=== PATIENT | male | born 1940 | race Caucasian/White ===

== ENCOUNTER → 2016-10-01 | Outpatient (CLI) | payer OTHER | END | disposition home or self-care (01) | LOC: CDC 08:55 | DX: Z01.810 Encounter for preprocedural cardiovascular examination (principal); R94.31 Abnormal electrocardiogram [ECG] [EKG] | CPT/HCPCS: 93000 ==

== ENCOUNTER → 2016-10-30 | Outpatient (CLI) | payer OTHER | END | disposition home or self-care (01) | DX: R26.2 Difficulty in walking, not elsewhere classified (principal); M25.562 Pain in left knee; M25.662 Stiffness of left knee, not elsewhere classified; M62.81 Muscle weakness (generalized) | CPT/HCPCS: 97110 GP; 97150 GO; 97161 GP; 97165 GO; G8978 GP; G8979 GP; G8980 GP; G8987 GO; G8988 GO; G8989 GO ==

== ENCOUNTER 2017-05-12 21:32 | Inpatient (IN) | payer OTHER ==
[~2017-05-12] VITALS: Ht 190.5 cm; Wt 105.6 kg
[~2017-05-12 21:32] MED LIST: FEOSOL325 MG PO; FISH OIL 1,0001 EAC7 PO; MULTIPLE VITAM1 EAC1 PO; RED YEAST RICE600 MG PO; TYLENOL EXTRA500 MG PO
[2017-05-13 09:02] VITALS: BP 131/71
[2017-05-13 14:19] LABS: MCV 94.3 FL (86-99); MEAN PLAT.VOLUME 10.5 uM^3 (9.0-12.4); PLATELET COUNT 125 K/uL (156-360); RBC DIS.WIDTH-CV 12.5 % (11.8-14.6); RBC DIS.WIDTH-SD 43.6 % (39-53); RED BLOOD COUNT 4.03 M/uL (4.00-5.50); WHITE BLOOD COUNT 4.3 K/uL (4.1-10.2)
[2017-05-13 16:20] VITALS: BP 117/62
[2017-05-13 20:22] VITALS: BP 129/73
[2017-05-13 23:49] VITALS: BP 119/70
[2017-05-14 04:03] VITALS: BP 134/77
[2017-05-14 06:03] LABS: HEMATOCRIT 38.6 % (38.0-50.0); MCV 91.7 FL (86-99)
[2017-05-14 06:28] LABS: ANION GAP 7 MEQ/L (2-14); CHLORIDE 105 MEQ/L (99-109); GFR ESTIMATE (CALCULATED) > 59 mL/min/; GLUCOSE 124 mg/dL (70-99); POTASSIUM 4.2 MEQ/L (3.7-5.4); SAMPLE HEMOLYSIS CHECK 0; SAMPLE ICTERIC CHECK 0; SAMPLE LIPEMIA CHECK 0; SODIUM 138 MEQ/L (136-147); UREA NITROGEN (BUN) 13 mg/dL (9-23)
[2017-05-14 08:06] VITALS: BP 148/75
[2017-05-14 12:00] VITALS: BP 120/74
[2017-05-14 15:43] VITALS: BP 148/77
[2017-05-14 20:09] VITALS: BP 130/70
[2017-05-15] VITALS: BP 131/73
[2017-05-15 04:00] VITALS: BP 133/74
[2017-05-15 06:43] LABS: HEMATOCRIT 37.8 % (38.0-50.0); MCV 92.6 FL (86-99)
[2017-05-15 08:00] VITALS: BP 123/65
[2017-05-15] MEDS ORDERED: LOVENOX40 MG/0.4 SC (09:30)
[2017-05-15] MEDS ORDERED: SENNA PLUS TAB1 EACH PO (09:30)
[2017-05-15] MEDS ORDERED: OXYCONTIN10 MG PO (09:30)
[2017-05-15] MEDS ORDERED: ENDOCET 5-3251 EACH PO (09:30)
[2017-05-15 12:12] VITALS: BP 132/71
== END 2017-05-15 14:23 | DRG 470 ==
LOC: ENRESERV 21:32 → 2SOUTH 05-13 08:34 → 3WEST 05-13 16:10
PROVIDERS: Orthopaedic Surgery
PROC: 0SRD0J9 Replacement of Left Knee Joint with Synthetic Substitute, Cemented, Open Approach (ICD-10-PCS; principal; 2017-05-13)
DX: M17.12 Unilateral primary osteoarthritis, left knee (principal); Z87.891 Personal history of nicotine dependence; G47.33 Obstructive sleep apnea (adult) (pediatric)
CPT/HCPCS: 73560; 80048; 85014; 85018; 85027; C1713; J0690; J1170; J1650; J2175; J2250; J2405; J3010; J7030; J7050

== ENCOUNTER 2017-05-23 02:41 | Inpatient (IN) | payer OTHER ==
[~2017-05-23] VITALS: Ht 188 cm; Wt 110.1 kg
[2017-05-23] VITALS (16 sets, daily range): BP systolic 94–161; BP diastolic 58–109
[~2017-05-23 02:41] MED LIST changes: +ENDOCET 5-3251 EACH PO; +LOVENOX40 MG/0.4 SC; +OXYCONTIN10 MG PO; +SENNA PLUS TAB1 EACH PO
[2017-05-23 03:04] LABS: HEMATOCRIT 36.1 % (38.0-50.0); MCH 31.8 PG (29.0-34.0); MCHC 32.7 G/DL (30.0-36.0); RBC DIS.WIDTH-CV 13.1 % (11.8-14.6); RBC DIS.WIDTH-SD 46.1 % (39-53); RED BLOOD COUNT 3.71 M/uL (4.00-5.50); WHITE BLOOD COUNT 12.5 K/uL (4.1-10.2)
[2017-05-23 03:05] LABS: INTER. NORMALIZED RATIO 1.1; PROTHROMBIN TIME 12.2 SEC (10.2-12.9)
[2017-05-23 03:08] LABS: PTT 26.8 SEC (25-37)
[2017-05-23 03:13] LABS: AMYLASE 58 IU/L (1-118); CHLORIDE 102 mEq/L (99-109); POTASSIUM 3.7 mEq/L (3.7-5.4); SODIUM 127 mEq/L (136-147)
[2017-05-23 03:14] LABS: GLUCOSE 362 mg/dL (70-99)
[2017-05-23 03:16] LABS: ANION GAP 10 MEQ/L (2-14)
[2017-05-23 03:17] LABS: SERUM ETHYL ALCOHOL < 10 mg/dL
[2017-05-23 03:18] LABS: GFR ESTIMATE (CALCULATED) > 59 mL/min/
[2017-05-23 03:19] LABS: UREA NITROGEN (BUN) 7 mg/dL (9-23)
[2017-05-23 03:21] LABS: LIPASE 6 U/L (1.0-51.0)
[2017-05-23 03:22] LABS: TROP-I INTERPRETATION NEGATIVE; TROPONIN-I 0.19 ng/mL (0.0-0.30)
[2017-05-23 03:34] LABS: MCV 97.3 FL (86-99); PLATELET COUNT 329 K/uL (156-360)
[2017-05-23 03:41] LABS: ABS NEUTROPHIL COUNT 9.3; ANISOCYTOSIS 1+; EOSINOPHIL ABS CT 0; HELMET CELLS 1+; INSTRUMENT ABS NEUTROPHIL CT 8.6 K/uL; MACROCYTES 2+; PLAT.SUFFICIENCY ADEQUATE; TEAR DROP CELLS 1+
[2017-05-23 04:50] LABS: BASE EXCESS -7.3 mEq/L (-3 to +3); BICARBONATE 19.3 mEq/L (22-26); CARBOXY HGB 1.8 % (0-5); METHEMOGLOBIN 1.5 % (0-1.5); PCO2 42 mm Hg (35-45); PO2 89 mm Hg (80-100)
[2017-05-23 04:51] LABS: COMMENTS - BLOOD GASES C+; DEVICE VENT; FI02 70 %; MECHANICAL RATE 18 resp/min; MODE AC; PEEP 5 CM/H20; SITE RR; TIDAL VOLUME 500 ML; TOTAL RESP RATE 27 resp/min; pH 7.27 (7.35-7.45)
[2017-05-23 06:02] LABS: METH RESISTANT S AUREUS PCR NEGATIVE (NEGATIVE)
[2017-05-23 06:07] LABS: PROBE CHECK PASS; SPECIMEN PROCESSING CONTROL PASS
[2017-05-23 06:31] LABS: EOSINOPHIL (%) 0 % (0-5); HEMATOCRIT 39.6 % (38.0-50.0); IMMATURE GRANULOCYTE (%) 1.5 % (0.0-0.7); IMMATURE GRANULOCYTE COUNT 0.2 K/uL; INSTRUMENT ABS NEUTROPHIL CT 10.3 K/uL; LYMPHOCYTE COUNT 0.8 K/uL (1.0-2.8); MCHC 33.1 G/DL (30.0-36.0); MCV 96.8 FL (86-99); MEAN PLAT.VOLUME 9.7 uM^3 (9.0-12.4); MONOCYTE (%) 4.6 % (3-12); MONOCYTE COUNT 0.5 K/uL (0-0.8); NEUTROPHIL (%) 87.3 % (45-76); NEUTROPHIL COUNT 10.3 K/uL (1.8-6.4); PLATELET COUNT 404 K/uL (156-360); RBC DIS.WIDTH-CV 13.1 % (11.8-14.6); RBC DIS.WIDTH-SD 46.4 % (39-53); RED BLOOD COUNT 4.09 M/uL (4.00-5.50); WHITE BLOOD COUNT 11.8 K/uL (4.1-10.2)
[2017-05-23 06:42] LABS: PTT 43.8 SEC (25-37)
[2017-05-23 07:29] LABS: ANION GAP 13 MEQ/L (2-14); CHLORIDE 106 MEQ/L (99-109); GLUCOSE 269 mg/dL (70-99); POTASSIUM 4.1 MEQ/L (3.7-5.4); SAMPLE HEMOLYSIS CHECK 0; SAMPLE ICTERIC CHECK 0; SAMPLE LIPEMIA CHECK 0; UREA NITROGEN (BUN) 20 mg/dL (9-23)
[2017-05-23 07:30] LABS: GFR ESTIMATE (CALCULATED) > 59 mL/min/; SODIUM 141 MEQ/L (136-147)
[2017-05-23 08:56] LABS: INTER. NORMALIZED RATIO 1.1
[2017-05-23 10:07] LABS: MAGNESIUM 2.4 mg/dl (1.3-2.7)
[2017-05-23 12:36] LABS: EOSINOPHIL (%) 0 % (0-5); IMMATURE GRANULOCYTE (%) 0.6 % (0.0-0.7); IMMATURE GRANULOCYTE COUNT 0.1 K/uL; INSTRUMENT ABS NEUTROPHIL CT 17.3 K/uL; LYMPHOCYTE COUNT 0.6 K/uL (1.0-2.8); MCH 32.5 PG (29.0-34.0); MCHC 33.5 G/DL (30.0-36.0); MCV 97.1 FL (86-99); MEAN PLAT.VOLUME 9.8 uM^3 (9.0-12.4); MONOCYTE (%) 5.7 % (3-12); MONOCYTE COUNT 1.1 K/uL (0-0.8); NEUTROPHIL (%) 90.5 % (45-76); NEUTROPHIL COUNT 17.3 K/uL (1.8-6.4); PLATELET COUNT 401 K/uL (156-360); RBC DIS.WIDTH-CV 13.2 % (11.8-14.6); RED BLOOD COUNT 4.43 M/uL (4.00-5.50); WHITE BLOOD COUNT 19.1 K/uL (4.1-10.2)
[2017-05-23 12:47] LABS: ANION GAP 13 MEQ/L (2-14); CHLORIDE 106 MEQ/L (99-109); POTASSIUM 4.2 MEQ/L (3.7-5.4); SAMPLE HEMOLYSIS CHECK 0; SAMPLE ICTERIC CHECK 0; SAMPLE LIPEMIA CHECK 0; SODIUM 140 MEQ/L (136-147)
[2017-05-23 12:53] LABS: GFR ESTIMATE (CALCULATED) > 59 mL/min/; GLUCOSE 185 mg/dL (70-99); UREA NITROGEN (BUN) 19 mg/dL (9-23)
[2017-05-23 13:33] LABS: TROP-I INTERPRETATION POSITIVE; TROPONIN-I 115.06 ng/mL (0.0-0.30)
[2017-05-23 14:26] LABS: MAGNESIUM 2.1 mg/dl (1.3-2.7)
[2017-05-23 15:23] LABS: BASE EXCESS -5.4 mEq/L (-3 to +3); BICARBONATE 21.6 mEq/L (22-26); CARBOXY HGB 1.9 % (0-5); METHEMOGLOBIN 1.5 % (0-1.5); PO2 100 mm Hg (80-100)
[2017-05-23 15:24] LABS: COMMENTS - BLOOD GASES C+ANA; DEVICE 840 PB; FI02 50 %; MECHANICAL RATE 14 resp/min; MODE AC; PCO2 47 mm Hg (35-45); PEEP 5 CM/H20; SITE ALINE; TIDAL VOLUME 500 ML; TOTAL RESP RATE 14 resp/min; pH 7.27 (7.35-7.45)
[2017-05-23 15:53] LABS: TROP-I INTERPRETATION POSITIVE; TROPONIN-I 68.35 ng/mL (0.0-0.30)
[2017-05-23 17:42] LABS: ADD MIUA? YES; BILIRUBIN NEGATIVE; BLOOD MODERATE; COLOR AMBER ((YELLOW)); GLUCOSE (STRIP) 50; KETONES 20; LEUKOCYTES NEGATIVE; NITRITE NEGATIVE; PROTEIN (STRIP) 30; SPECIFIC GRAVITY 1.044 (1.000-1.030)
[2017-05-23 18:05] LABS: BACTERIA 2+ /HPF; EPITHELIAL CELLS RARE /HPF; MUCUS RARE /LPF; WHITE BLOOD CELLS 0-5 /HPF (0-5)
[2017-05-23 18:08] LABS: CASTS PRESENT /LPF; CRYSTALS PRESENT
[2017-05-23 18:09] LABS: POINT-OF-CARE METER ID UU13113803
[2017-05-23 18:09] LABS: COARSE GRANULAR CASTS 0-5 /LPF; HYALINE CASTS 0-5 /LPF; URIC ACID CRYSTALS 1+ /HPF
[2017-05-23 18:13] LABS: EOSINOPHIL (%) 0 % (0-5); HEMATOCRIT 39.4 % (38.0-50.0); IMMATURE GRANULOCYTE (%) 0.4 % (0.0-0.7); IMMATURE GRANULOCYTE COUNT 0.1 K/uL; INSTRUMENT ABS NEUTROPHIL CT 18.6 K/uL; LYMPHOCYTE COUNT 0.6 K/uL (1.0-2.8); MCH 31.4 PG (29.0-34.0); MCV 95.2 FL (86-99); MEAN PLAT.VOLUME 9.9 uM^3 (9.0-12.4); MONOCYTE (%) 4.2 % (3-12); MONOCYTE COUNT 0.9 K/uL (0-0.8); NEUTROPHIL (%) 92.3 % (45-76); NEUTROPHIL COUNT 18.6 K/uL (1.8-6.4); PLATELET COUNT 359 K/uL (156-360); RBC DIS.WIDTH-CV 13.2 % (11.8-14.6); RED BLOOD COUNT 4.14 M/uL (4.00-5.50); WHITE BLOOD COUNT 20.2 K/uL (4.1-10.2)
[2017-05-23 18:31] LABS: ANION GAP 12 MEQ/L (2-14); CHLORIDE 108 MEQ/L (99-109); GFR ESTIMATE (CALCULATED) > 59 mL/min/; GLUCOSE 230 mg/dL (70-99); MAGNESIUM 1.9 mg/dl (1.3-2.7); POTASSIUM 4.5 MEQ/L (3.7-5.4); SAMPLE HEMOLYSIS CHECK 1; SAMPLE ICTERIC CHECK 0; SAMPLE LIPEMIA CHECK 0; SODIUM 139 MEQ/L (136-147); UREA NITROGEN (BUN) 17 mg/dL (9-23)
[2017-05-23 18:37] LABS: TROP-I INTERPRETATION POSITIVE; TROPONIN-I 44.99 ng/mL (0.0-0.30)
[2017-05-23 18:38] LABS: INTER. NORMALIZED RATIO 1.1; PROTHROMBIN TIME 12.8 SEC (10.2-12.9)
[2017-05-23 18:40] LABS: PTT 29.4 SEC (25-37)
[2017-05-24] LABS: POINT-OF-CARE METER ID UU13113803
[2017-05-24 00:36] LABS: EOSINOPHIL (%) 0 % (0-5); HEMATOCRIT 34.6 % (38.0-50.0); IMMATURE GRANULOCYTE (%) 0.4 % (0.0-0.7); IMMATURE GRANULOCYTE COUNT 0.1 K/uL; INSTRUMENT ABS NEUTROPHIL CT 13.9 K/uL; LYMPHOCYTE COUNT 0.9 K/uL (1.0-2.8); MCH 32.4 PG (29.0-34.0); MCV 92.5 FL (86-99); MONOCYTE COUNT 0.8 K/uL (0-0.8); NEUTROPHIL COUNT 13.9 K/uL (1.8-6.4); PLATELET COUNT 293 K/uL (156-360); RBC DIS.WIDTH-CV 13.2 % (11.8-14.6); RED BLOOD COUNT 3.74 M/uL (4.00-5.50); WHITE BLOOD COUNT 15.6 K/uL (4.1-10.2)
[2017-05-24 00:45] LABS: INTER. NORMALIZED RATIO 1.1; PROTHROMBIN TIME 12.8 SEC (10.2-12.9)
[2017-05-24 00:48] LABS: CHLORIDE 110 mEq/L (99-109); PTT 26.5 SEC (25-37)
[2017-05-24 00:49] LABS: MAGNESIUM 1.9 mg/dL (1.3-2.7); POTASSIUM 3.7 mEq/L (3.7-5.4); SODIUM 140 mEq/L (136-147)
[2017-05-24 00:50] LABS: GLUCOSE 139 mg/dL (70-99)
[2017-05-24 00:52] LABS: ANION GAP 9 MEQ/L (2-14)
[2017-05-24 00:54] LABS: GFR ESTIMATE (CALCULATED) > 59 mL/min/
[2017-05-24 00:55] LABS: UREA NITROGEN (BUN) 17 mg/dL (9-23)
[2017-05-24 00:59] LABS: TROP-I INTERPRETATION POSITIVE
[2017-05-24 01:01] LABS: TROPONIN-I 26.01 ng/mL (0.0-0.30)
[2017-05-24 05:09] LABS: POINT-OF-CARE METER ID UU14314083
[2017-05-24 05:17] LABS: EOSINOPHIL (%) 0 % (0-5); HEMATOCRIT 35.5 % (38.0-50.0); IMMATURE GRANULOCYTE (%) 0.3 % (0.0-0.7); IMMATURE GRANULOCYTE COUNT 0.1 K/uL; INSTRUMENT ABS NEUTROPHIL CT 15.1 K/uL; LYMPHOCYTE COUNT 0.8 K/uL (1.0-2.8); MCH 32.5 PG (29.0-34.0); MCHC 34.9 G/DL (30.0-36.0); MCV 92.9 FL (86-99); MEAN PLAT.VOLUME 9.9 uM^3 (9.0-12.4); MONOCYTE (%) 4.2 % (3-12); MONOCYTE COUNT 0.7 K/uL (0-0.8); NEUTROPHIL (%) 90.4 % (45-76); NEUTROPHIL COUNT 15.1 K/uL (1.8-6.4); PLATELET COUNT 307 K/uL (156-360); RBC DIS.WIDTH-CV 13.3 % (11.8-14.6); RBC DIS.WIDTH-SD 45.2 % (39-53); RED BLOOD COUNT 3.82 M/uL (4.00-5.50); WHITE BLOOD COUNT 16.7 K/uL (4.1-10.2)
[2017-05-24 05:37] LABS: INTER. NORMALIZED RATIO 1.2; PROTHROMBIN TIME 13.3 SEC (10.2-12.9)
[2017-05-24 05:40] LABS: PTT 28.5 SEC (25-37)
[2017-05-24 05:40] LABS: ANION GAP 10 MEQ/L (2-14); CHLORIDE 108 MEQ/L (99-109); GFR ESTIMATE (CALCULATED) > 59 mL/min/; GLUCOSE 117 mg/dL (70-99); MAGNESIUM 1.9 mg/dl (1.3-2.7); POTASSIUM 3.7 MEQ/L (3.7-5.4); SAMPLE HEMOLYSIS CHECK 0; SAMPLE ICTERIC CHECK 0; SAMPLE LIPEMIA CHECK 0; SODIUM 140 MEQ/L (136-147); UREA NITROGEN (BUN) 17 mg/dL (9-23)
[2017-05-24 08:13] LABS: BASE EXCESS 0.2 mEq/L (-3 to +3); BICARBONATE 23.3 mEq/L (22-26); CARBOXY HGB 1.5 % (0-5); COMMENTS - BLOOD GASES C+; DEVICE 840; FI02 30 %; MECHANICAL RATE 20 resp/min; METHEMOGLOBIN 1.4 % (0-1.5); MODE A/C; PCO2 32 mm Hg (35-45); PO2 84 mm Hg (80-100); SITE ALINE; TOTAL RESP RATE 20 resp/min; pH 7.47 (7.35-7.45)
[2017-05-24 08:14] LABS: PEEP 5 CM/H20; TIDAL VOLUME 500 ML
[2017-05-24 12:00] LABS: EOSINOPHIL (%) 0 % (0-5); IMMATURE GRANULOCYTE (%) 0.6 % (0.0-0.7); IMMATURE GRANULOCYTE COUNT 0.1 K/uL; INSTRUMENT ABS NEUTROPHIL CT 16.3 K/uL; MCH 32.2 PG (29.0-34.0); MCHC 34.7 G/DL (30.0-36.0); MCV 92.8 FL (86-99); MEAN PLAT.VOLUME 10.1 uM^3 (9.0-12.4); MONOCYTE COUNT 0.7 K/uL (0-0.8); NEUTROPHIL COUNT 16.3 K/uL (1.8-6.4); PLATELET COUNT 320 K/uL (156-360); RBC DIS.WIDTH-CV 13.4 % (11.8-14.6); RBC DIS.WIDTH-SD 44.5 % (39-53); RED BLOOD COUNT 3.88 M/uL (4.00-5.50); WHITE BLOOD COUNT 18.1 K/uL (4.1-10.2)
[2017-05-24 12:15] LABS: INTER. NORMALIZED RATIO 1.1
[2017-05-24 12:18] LABS: PTT 30.8 SEC (25-37)
[2017-05-24 12:46] LABS: ANION GAP 11 MEQ/L (2-14); CHLORIDE 109 MEQ/L (99-109); GFR ESTIMATE (CALCULATED) > 59 mL/min/; GLUCOSE 108 mg/dL (70-99); MAGNESIUM 1.9 mg/dl (1.3-2.7); POTASSIUM 3.9 MEQ/L (3.7-5.4); SAMPLE HEMOLYSIS CHECK 0; SAMPLE ICTERIC CHECK 0; SAMPLE LIPEMIA CHECK 0; SODIUM 143 MEQ/L (136-147); UREA NITROGEN (BUN) 18 mg/dL (9-23)
[2017-05-24 17:00] VITALS: BP 100/67
[2017-05-24 17:52] LABS: POINT-OF-CARE METER ID UU14314083
[2017-05-24 22:00] VITALS: BP 107/70
[2017-05-25] VITALS (18 sets, daily range): BP systolic 90–115; BP diastolic 54–78
[2017-05-25 08:35] LABS: HEMATOCRIT 36.2 % (38.0-50.0); MCH 31.7 PG (29.0-34.0); MCHC 33.1 G/DL (30.0-36.0); MCV 95.5 FL (86-99); MEAN PLAT.VOLUME 10.3 uM^3 (9.0-12.4); PLATELET COUNT 307 K/uL (156-360); RBC DIS.WIDTH-CV 13.8 % (11.8-14.6); RBC DIS.WIDTH-SD 47.3 % (39-53); RED BLOOD COUNT 3.79 M/uL (4.00-5.50); WHITE BLOOD COUNT 14.7 K/uL (4.1-10.2)
[2017-05-25 08:58] LABS: ANION GAP 11 MEQ/L (2-14); CHLORIDE 108 MEQ/L (99-109); GFR ESTIMATE (CALCULATED) > 59 mL/min/; GLUCOSE 101 mg/dL (70-99); POTASSIUM 3.9 MEQ/L (3.7-5.4); SAMPLE HEMOLYSIS CHECK 0; SAMPLE ICTERIC CHECK 0; SAMPLE LIPEMIA CHECK 0; SODIUM 145 MEQ/L (136-147); UREA NITROGEN (BUN) 20 mg/dL (9-23)
[2017-05-25] MEDS ORDERED: MIRALAX17 GM PO (12:59)
[2017-05-25] MEDS ORDERED: CALCIUM 500 MG1 EACH PO (12:59)
[2017-05-26] VITALS: BP 76/48
[2017-05-26 00:13] LABS: POINT-OF-CARE METER ID UU14174217
[2017-05-26 04:00] VITALS: BP 104/78
[2017-05-26 08:00] VITALS: BP 100/62
[2017-05-26 12:00] VITALS: BP 116/70
[2017-05-26 16:00] VITALS: BP 116/77
[2017-05-26 20:00] VITALS: BP 131/70
[2017-05-27] VITALS: BP 122/84
[2017-05-27 04:00] VITALS: BP 138/81
[2017-05-27 08:00] VITALS: BP 128/84
[2017-05-27 12:00] VITALS: BP 125/82
[2017-05-27 16:00] VITALS: BP 121/68
[2017-05-27 20:00] VITALS: BP 112/68
[2017-05-28] VITALS (9 sets, daily range): BP systolic 85–118; BP diastolic 50–82
[2017-05-29 00:28] VITALS: BP 111/71
[2017-05-29 05:12] VITALS: BP 98/54
[2017-05-29 06:55] LABS: HEMATOCRIT 29.5 % (38.0-50.0); MCH 31.4 PG (29.0-34.0); MCHC 32.5 G/DL (30.0-36.0); MCV 96.4 FL (86-99); MEAN PLAT.VOLUME 9.9 uM^3 (9.0-12.4); PLATELET COUNT 286 K/uL (156-360); RBC DIS.WIDTH-CV 13.6 % (11.8-14.6); RBC DIS.WIDTH-SD 45.5 % (39-53); RED BLOOD COUNT 3.06 M/uL (4.00-5.50); WHITE BLOOD COUNT 5.5 K/uL (4.1-10.2)
[2017-05-29 07:12] LABS: ANION GAP 7 MEQ/L (2-14); CHLORIDE 109 MEQ/L (99-109); GFR ESTIMATE (CALCULATED) > 59 mL/min/; GLUCOSE 101 mg/dL (70-99); POTASSIUM 4.1 MEQ/L (3.7-5.4); SAMPLE HEMOLYSIS CHECK 0; SAMPLE ICTERIC CHECK 0; SAMPLE LIPEMIA CHECK 0; SODIUM 141 MEQ/L (136-147); UREA NITROGEN (BUN) 17 mg/dL (9-23)
[2017-05-29 07:19] VITALS: BP 91/56
[2017-05-29] MEDS ORDERED: DIGOXIN125 MCG PO (12:33)
[2017-05-29] MEDS ORDERED: ATORVASTATIN CA40 MG PO (12:33)
[2017-05-29] MEDS ORDERED: BRILINTA90 MG PO (12:33)
[2017-05-29] MEDS ORDERED: PANTOPRAZOLE SO40 MG PO (12:34)
[2017-05-29] MEDS ORDERED: CARVEDILOL12.5 MG PO (12:34)
[2017-05-29] MEDS ORDERED: ASPIRIN81 M2 PO (12:34)
[2017-05-29] MEDS ORDERED: LISINOPRIL5 MG PO (12:34)
[2017-05-29] MEDS ORDERED: COREG25 M1 PO (15:35)
[2017-05-29] MEDS ORDERED: MAALOX ADVANCE355 ML PO (15:40)
[2017-05-29] MEDS ORDERED: BENADRYL ALLERG25 MG PO (15:42)
[2017-05-29] MEDS ORDERED: TYLENOL REGULA325 MG PO (15:43)
[2017-05-29] MEDS ORDERED: ZESTRIL10 MG PO (15:44)
== END 2017-05-29 14:04 | DRG 246 ==
LOC: EME 02:41 → CATH 03:18 → EME 03:18 → 5SOUTH 04:33 → 4WEST 04:33 → CANRESERV 05-25 17:17 → ENRESERV 05-25 17:17 → 5SOUTH 05-28 04:11
PROVIDERS: Emergency Medicine; Internal Medicine Cardiovascular Disease; Internal Medicine Critical Care Medicine; Obstetrics & Gynecology; Specialist
DX: I21.02 ST elevation (STEMI) myocardial infarction involving left anterior descending coronary artery (principal); I46.2 Cardiac arrest due to underlying cardiac condition; G93.1 Anoxic brain damage, not elsewhere classified; J96.00 Acute respiratory failure, unspecified whether with hypoxia or hypercapnia; I48.91 Unspecified atrial fibrillation; I25.10 Atherosclerotic heart disease of native coronary artery without angina pectoris; I25.5 Ischemic cardiomyopathy; K21.9 Gastro-esophageal reflux disease without esophagitis; G47.00 Insomnia, unspecified; Z96.652 Presence of left artificial knee joint; Z85.51 Personal history of malignant neoplasm of bladder; Z87.891 Personal history of nicotine dependence
CPT/HCPCS: 36600; 36620; 70450; 70551; 71010; 80048; 80048 91; 81003; 82150; 82330; 82803; 82948; 83605; 83690; 83735; 84100; 84484; 85025; 85025 91; 85027; 85347; 85610; 85730; 86850; 86900; 86901; 87040; 87070; 87086; 87205; 87641; 92523 GN; 93005; 93306; 93971; 94002; 94003; 94760; 94799; 97530 GP; 97532 GN; 99281; 99285; C1725; C1760; C1769; C1874; C1887; C1894; G0480; J0153; J0171; J0282; J0295; J1160; J1644; J1650; J1815; J1953; J2250; J2704; J3010; J3246; J7030; J7050

== ENCOUNTER 2017-05-29 13:23 | Inpatient (IN) | payer OTHER ==
[~2017-05-29] VITALS: Ht 189.2 cm; Wt 107.3 kg
[~2017-05-29 13:23] MED LIST changes: +ASPIRIN81 M2 PO; +ATORVASTATIN CA40 MG PO; +BRILINTA90 MG PO; +CALCIUM 500 MG1 EACH PO; +CARVEDILOL12.5 MG PO; +DIGOXIN125 MCG PO; +LISINOPRIL5 MG PO; +MIRALAX17 GM PO; +PANTOPRAZOLE SO40 MG PO
[2017-05-29 14:30] VITALS: BP 90/55
[2017-05-29] MEDS ORDERED: COREG25 M1 PO (15:35)
[2017-05-29] MEDS ORDERED: MAALOX ADVANCE355 ML PO (15:40)
[2017-05-29] MEDS ORDERED: BENADRYL ALLERG25 MG PO (15:42)
[2017-05-29] MEDS ORDERED: TYLENOL REGULA325 MG PO (15:43)
[2017-05-29] MEDS ORDERED: ZESTRIL10 MG PO (15:44)
[2017-05-30 05:22] LABS: HEMATOCRIT 28.6 % (38.0-50.0); MCH 31.7 PG (29.0-34.0); MCHC 33.2 G/DL (30.0-36.0); MCV 95.3 FL (86-99); MEAN PLAT.VOLUME 10.3 uM^3 (9.0-12.4); PLATELET COUNT 293 K/uL (156-360); RBC DIS.WIDTH-CV 13.8 % (11.8-14.6); RBC DIS.WIDTH-SD 46.7 % (39-53); WHITE BLOOD COUNT 6.2 K/uL (4.1-10.2)
[2017-05-30 05:27] VITALS: BP 105/88
[2017-05-30 05:44] LABS: ALKALINE PHOSPHATASE 68 IU/L (3-129); ANION GAP 6 MEQ/L (2-14); CHLORIDE 109 MEQ/L (99-109); GFR ESTIMATE (CALCULATED) > 59 mL/min/; GLUCOSE 101 mg/dL (70-99); SAMPLE HEMOLYSIS CHECK 1; SAMPLE ICTERIC CHECK 0; SAMPLE LIPEMIA CHECK 0; SODIUM 140 MEQ/L (136-147); TOTAL BILIRUBIN 0.9 MG/DL (0.0-1.0); UREA NITROGEN (BUN) 17 mg/dL (9-23)
[2017-05-30 15:22] VITALS: BP 96/61
[2017-05-31 05:51] VITALS: BP 97/56
[2017-05-31 16:10] VITALS: BP 99/60
[2017-06-01 04:51] VITALS: BP 117/58
[2017-06-01 15:40] VITALS: BP 100/58
[2017-06-01 19:26] LABS: C DIFF TOXIN POSITIVE (NEGATIVE)
[2017-06-01 19:27] LABS: PROBE CHECK PASS
[2017-06-02 05:15] VITALS: BP 109/63
[2017-06-02 16:15] VITALS: BP 103/55
[2017-06-03 04:46] LABS: HEMATOCRIT 32.9 % (38.0-50.0); MCH 31.8 PG (29.0-34.0); MCHC 33.7 G/DL (30.0-36.0); MCV 94.3 FL (86-99); MEAN PLAT.VOLUME 10.2 uM^3 (9.0-12.4); PLATELET COUNT 259 K/uL (156-360); RBC DIS.WIDTH-CV 13.7 % (11.8-14.6); RBC DIS.WIDTH-SD 46.1 % (39-53); RED BLOOD COUNT 3.49 M/uL (4.00-5.50); WHITE BLOOD COUNT 5.9 K/uL (4.1-10.2)
[2017-06-03 05:01] LABS: CHLORIDE 109 mEq/L (99-109); POTASSIUM 3.7 mEq/L (3.7-5.4); SODIUM 138 mEq/L (136-147)
[2017-06-03 05:03] LABS: GLUCOSE 103 mg/dL (70-99)
[2017-06-03 05:04] LABS: ANION GAP 6 MEQ/L (2-14)
[2017-06-03 05:06] LABS: GFR ESTIMATE (CALCULATED) > 59 mL/min/ (58.99-99999)
[2017-06-03 05:07] LABS: UREA NITROGEN (BUN) 12 mg/dL (9-23)
[2017-06-03 06:22] VITALS: BP 128/62
[2017-06-03 16:04] VITALS: BP 104/62
[2017-06-03 22:21] VITALS: BP 126/61
[2017-06-04 05:08] VITALS: BP 104/56
[2017-06-04 15:23] VITALS: BP 90/51
[2017-06-05 06:12] VITALS: BP 103/58
[2017-06-05 16:15] VITALS: BP 96/58
[2017-06-05 22:51] VITALS: BP 110/60
[2017-06-06 04:43] VITALS: BP 96/54
[2017-06-06 16:00] VITALS: BP 100/62
[2017-06-07 05:15] VITALS: BP 104/62
[2017-06-07 06:30] LABS: MCH 30.5 PG (29.0-34.0); MCHC 32.2 G/DL (30.0-36.0); MCV 94.7 FL (86-99); MEAN PLAT.VOLUME 10.1 uM^3 (9.0-12.4); PLATELET COUNT 307 K/uL (156-360); RBC DIS.WIDTH-CV 14.3 % (11.8-14.6); RBC DIS.WIDTH-SD 48.2 % (39-53); RED BLOOD COUNT 2.85 M/uL (4.00-5.50); WHITE BLOOD COUNT 3.5 K/uL (4.1-10.2)
[2017-06-07 06:39] LABS: ANION GAP 9 MEQ/L (2-14); CHLORIDE 109 MEQ/L (99-109); GFR ESTIMATE (CALCULATED) > 59 mL/min/ (58.99-99999); GLUCOSE 92 mg/dL (70-99); POTASSIUM 4.1 MEQ/L (3.7-5.4); SAMPLE HEMOLYSIS CHECK 1; SAMPLE ICTERIC CHECK 0; SAMPLE LIPEMIA CHECK 0; SODIUM 142 MEQ/L (136-147); UREA NITROGEN (BUN) 7 mg/dL (9-23)
[2017-06-07 16:10] VITALS: BP 98/58
[2017-06-07 19:17] LABS: INTERNAL CONTROL VALID? YES
[2017-06-08 05:20] VITALS: BP 107/62
[2017-06-08 05:49] LABS: HEMATOCRIT 29.6 % (38.0-50.0); MCH 30.7 PG (29.0-34.0); MCHC 32.4 G/DL (30.0-36.0); MCV 94.6 FL (86-99); MEAN PLAT.VOLUME 9.9 uM^3 (9.0-12.4); PLATELET COUNT 313 K/uL (156-360); RBC DIS.WIDTH-CV 14.8 % (11.8-14.6); RBC DIS.WIDTH-SD 49.1 % (39-53); RED BLOOD COUNT 3.13 M/uL (4.00-5.50); WHITE BLOOD COUNT 3.8 K/uL (4.1-10.2)
[2017-06-08 06:14] LABS: ANION GAP 7 MEQ/L (2-14); CHLORIDE 110 MEQ/L (99-109); GFR ESTIMATE (CALCULATED) > 59 mL/min/ (58.99-99999); GLUCOSE 97 mg/dL (70-99); IRON 47 MCG/DL (35-150); SAMPLE HEMOLYSIS CHECK 0; SAMPLE ICTERIC CHECK 0; SAMPLE LIPEMIA CHECK 0; SODIUM 143 MEQ/L (136-147); UREA NITROGEN (BUN) 7 mg/dL (9-23)
[2017-06-08] MEDS ORDERED: VANCOMYCIN125 MG/2.5 PO (10:44)
[2017-06-08] MEDS ORDERED: FAMOTIDINE20 MG PO (10:47)
[2017-06-08] MEDS ORDERED: FEOSOL325 MG PO (10:47)
[2017-06-08] MEDS ORDERED: CARVEDILOL12.5 MG PO (10:47)
[2017-06-08] MEDS ORDERED: LISINOPRIL2.5 MG PO (10:47)
[2017-06-08] MEDS ORDERED: ATORVASTATIN CA40 MG PO (10:47)
[2017-06-08] MEDS ORDERED: ASPIRIN81 M2 PO (10:47)
[2017-06-08] MEDS ORDERED: DIGOXIN125 MCG PO (10:47)
[2017-06-08] MEDS ORDERED: BRILINTA90 MG PO (10:47)
[2017-06-08] MEDS ORDERED: FLORASTOR250 MG PO (10:47)
== END 2017-06-08 13:37 | disposition home health service (06) | DRG 945 ==
LOC: 3WEST 13:23 → ENPENDDIS 06-08 → 3WEST 06-08 13:37
PROVIDERS: Internal Medicine; Physical Medicine & Rehabilitation Pain Medicine
PROC: F07M0ZZ Range of Motion and Joint Mobility Treatment of Musculoskeletal System - Whole Body (ICD-10-PCS; principal; 2017-05-29)
DX: R53.1 Weakness (principal); R26.9 Unspecified abnormalities of gait and mobility; G89.18 Other acute postprocedural pain; M25.562 Pain in left knee; A04.72 Enterocolitis due to Clostridium difficile, not specified as recurrent; I21.02 ST elevation (STEMI) myocardial infarction involving left anterior descending coronary artery; G93.1 Anoxic brain damage, not elsewhere classified; I47.2 Ventricular tachycardia; E83.51 Hypocalcemia; Z86.74 Personal history of sudden cardiac arrest; I11.0 Hypertensive heart disease with heart failure; I50.9 Heart failure, unspecified; I25.5 Ischemic cardiomyopathy; I95.1 Orthostatic hypotension; G47.00 Insomnia, unspecified; R05 Cough; M17.12 Unilateral primary osteoarthritis, left knee; D62 Acute posthemorrhagic anemia; I25.10 Atherosclerotic heart disease of native coronary artery without angina pectoris; E78.5 Hyperlipidemia, unspecified; S51.011A Laceration without foreign body of right elbow, initial encounter; S20.319A Abrasion of unspecified front wall of thorax, initial encounter; S90.812A Abrasion, left foot, initial encounter; R21 Rash and other nonspecific skin eruption; R11.0 Nausea; T37.3X5A Adverse effect of other antiprotozoal drugs, initial encounter; E66.9 Obesity, unspecified; Z68.29 Body mass index [BMI] 29.0-29.9, adult; Z95.5 Presence of coronary angioplasty implant and graft; Z96.652 Presence of left artificial knee joint; Z85.51 Personal history of malignant neoplasm of bladder; Z80.3 Family history of malignant neoplasm of breast
CPT/HCPCS: 71010; 80048; 80053; 82272; 82607; 82746; 83540; 84466; 85027; 87493; 92523 GN; 97110 GO; 97530 GP; 97532 GN; J1650; J7030

== ENCOUNTER 2017-09-05 07:24 | Inpatient (IN) | payer OTHER ==
[~2017-09-05] VITALS: Ht 190.5 cm; Wt 94.3 kg
[~2017-09-05 07:24] MED LIST changes: +BENADRYL ALLERG25 MG PO; +COREG25 M1 PO; +FAMOTIDINE20 MG PO; +FLORASTOR250 MG PO; +LISINOPRIL2.5 MG PO; +MAALOX ADVANCE355 ML PO; +TYLENOL REGULA325 MG PO; +VANCOMYCIN125 MG/2.5 PO; +ZESTRIL10 MG PO
[2017-09-05 07:35] LABS: BASOPHIL (%) 0.2 % (0-1); EOSINOPHIL (%) 0 % (0-5); HEMATOCRIT 35.5 % (38.0-50.0); HEMOGLOBIN 12.1 G/DL (12.5-16.6); IMMATURE GRANULOCYTE (%) 0.3 % (0.0-0.7); LYMPHOCYTE (%) 5.8 % (15-42); LYMPHOCYTE COUNT 0.5 K/uL (1.0-2.8); MCH 30.8 PG (29.0-34.0); MCHC 34.1 G/DL (30.0-36.0); MCV 90.3 FL (86-99); MONOCYTE (%) 9.2 % (3-12); MONOCYTE COUNT 0.9 K/uL (0-0.8); NEUTROPHIL (%) 84.5 % (45-76); NEUTROPHIL COUNT 7.9 K/uL (1.8-6.4); PLATELET COUNT 125 K/uL (156-360); RBC DIS.WIDTH-CV 15.2 % (11.8-14.6); RBC DIS.WIDTH-SD 50.3 % (39-53); RED BLOOD COUNT 3.93 M/uL (4.00-5.50); WHITE BLOOD COUNT 9.4 K/uL (4.1-10.2)
[2017-09-05 07:43] LABS: INTER. NORMALIZED RATIO 1.1
[2017-09-05 07:44] LABS: AMYLASE 30 IU/L (1-118); CHLORIDE 112 mEq/L (99-109); POTASSIUM 3.3 mEq/L (3.7-5.4); SODIUM 142 mEq/L (136-147)
[2017-09-05 07:46] LABS: GLUCOSE 122 mg/dL (70-99); PTT 28.5 SEC (25-37)
[2017-09-05 07:49] LABS: SERUM ETHYL ALCOHOL < 10 mg/dL
[2017-09-05 07:50] LABS: GFR ESTIMATE (CALCULATED) > 59 mL/min/ (58.99-99999)
[2017-09-05 07:51] LABS: UREA NITROGEN (BUN) 8 mg/dL (9-23)
[2017-09-05] MEDS ORDERED: BRILINTA90 MG PO (07:52)
[2017-09-05] MEDS ORDERED: SERTRALINE HCL25 MG PO (07:53)
[2017-09-05 07:58] LABS: TROP-I INTERPRETATION NEGATIVE; TROPONIN-I 0.03 ng/mL (0.0-0.30)
[2017-09-05 08:13] LABS: LIPASE 6 U/L (1.0-51.0)
[2017-09-05 09:20] LABS: APPEARANCE CLEAR ((CLEAR)); BILIRUBIN NEGATIVE; BLOOD MODERATE; COLOR YELLOW ((YELLOW)); GLUCOSE (STRIP) NEGATIVE; KETONES NEGATIVE; LEUKOCYTES SMALL; NITRITE NEGATIVE; PROTEIN (STRIP) NEGATIVE; SPECIFIC GRAVITY 1.009 (1.000-1.030); UROBILINOGEN 0.2 MG/DL (0.2-1.0)
[2017-09-05 09:24] LABS: BACTERIA 1+ /HPF; CALCIUM OXALATE CRYSTALS 1+ /HPF; EPITHELIAL CELLS NONE SEEN /HPF; MUCUS 1+ /LPF; UCUL ADDED? YES; WHITE BLOOD CELLS 20-30 /HPF (0-5)
[2017-09-05 09:30] LABS: AMPHETAMINE NEGATIVE (500 ng/mL); BARBITURATES NEGATIVE (200 ng/mL); BENZODIAZEPINES NEGATIVE (150 ng/mL); BUPRENORPHINE NEGATIVE (10 ng/mL); COCAINE NEGATIVE (150 ng/mL); METHADONE NEGATIVE (200 ng/mL); METHAMPHETAMINE NEGATIVE (500 ng/mL); OPIATES (MORPHINE) NEGATIVE (100 ng/mL); OXYCODONE NEGATIVE (100 ng/mL); PHENCYCLIDINE NEGATIVE (25 ng/mL); PROPOXYPHENE NEGATIVE (300 ng/mL); THC CANNABINOIDS NEGATIVE (50 ng/mL); TRICYCLIC ANTIDEPRESSANTS NEGATIVE (300 ng/mL)
[2017-09-05 11:16] LABS: HDL CHOLESTEROL 50 MG/DL (Desirable>=40); LDL CHOLESTEROL 49 mg/dL (Desirable<100); NON-HDL CHOLESTEROL 61 mg/dL (Desirable<160); TOTAL CHOLESTEROL 111 mg/dL (Desirable<200); TRIGLYCERIDES 61 MG/DL (Normal: <150)
[2017-09-05 12:44] VITALS: BP 97/54
[2017-09-05 13:09] LABS: HEMOGLOBIN A1c (GLYCOHEMOGLOB) 5.7 % (Below 5.7)
[2017-09-05 15:04] LABS: TROP-I INTERPRETATION NEGATIVE; TROPONIN-I 0.03 ng/mL (0.0-0.30)
[2017-09-05 16:24] VITALS: BP 98/54
[2017-09-05 20:25] LABS: TROP-I INTERPRETATION NEGATIVE; TROPONIN-I 0.02 ng/mL (0.0-0.30)
[2017-09-05 20:45] VITALS: BP 93/53
[2017-09-05 20:51] LABS: C DIFF TOXIN POSITIVE (NEGATIVE)
[2017-09-05 23:58] VITALS: BP 74/45; BP 88/53
[2017-09-06 04:27] VITALS: BP 108/59
[2017-09-06 07:19] VITALS: BP 104/60
[2017-09-06 08:57] LABS: HEMATOCRIT 32.4 % (38.0-50.0); MCH 30.7 PG (29.0-34.0); MCV 90.5 FL (86-99); PLATELET COUNT 123 K/uL (156-360); RBC DIS.WIDTH-CV 15.5 % (11.8-14.6); RBC DIS.WIDTH-SD 51.5 % (39-53); RED BLOOD COUNT 3.58 M/uL (4.00-5.50)
[2017-09-06 09:22] LABS: ALBUMIN 2.6 G/DL (3.2-4.8); ALKALINE PHOSPHATASE 34 IU/L (3-129); ALT (GPT) 11 IU/L (3-49); AST (GOT) 13 IU/L (2-34); CHLORIDE 112 MEQ/L (99-109); CREATININE 0.9 MG/DL (0.6-1.3); GFR ESTIMATE (CALCULATED) > 59 mL/min/ (58.99-99999); MAGNESIUM 1.7 mg/dl (1.3-2.7); POTASSIUM 3.1 MEQ/L (3.7-5.4); SODIUM 143 MEQ/L (136-147); TOTAL BILIRUBIN 0.8 MG/DL (0.0-1.0); TOTAL PROTEIN 4.4 G/DL (6.4-8.3); UREA NITROGEN (BUN) 7 mg/dL (9-23)
[2017-09-06 09:34] LABS: GLUCOSE 81 mg/dL (70-99)
[2017-09-06 11:36] VITALS: BP 117/67
[2017-09-06] MEDS ORDERED: LISINOPRIL2.5 MG PO (12:19)
[2017-09-06] MEDS ORDERED: AZELASTINE205.5 MCG/ BOTH NARES (12:20)
[2017-09-06] MEDS ORDERED: MULTI VITAMIN1 EACH PO (12:20)
[2017-09-06] MEDS ORDERED: OYST-CAL-500500 MG PO (12:21)
[2017-09-06 16:07] VITALS: BP 114/72
[2017-09-06 20:00] VITALS: BP 122/60
[2017-09-07 04:57] VITALS: BP 105/61
[2017-09-07 08:53] LABS: HEMATOCRIT 32.4 % (38.0-50.0); HEMOGLOBIN 10.8 G/DL (12.5-16.6); MCH 30.1 PG (29.0-34.0); MCHC 33.3 G/DL (30.0-36.0); MCV 90.3 FL (86-99); PLATELET COUNT 123 K/uL (156-360); RBC DIS.WIDTH-CV 14.9 % (11.8-14.6); RBC DIS.WIDTH-SD 49.6 % (39-53); RED BLOOD COUNT 3.59 M/uL (4.00-5.50)
[2017-09-07 09:17] LABS: CHLORIDE 114 MEQ/L (99-109); CREATININE 0.8 MG/DL (0.6-1.3); GFR ESTIMATE (CALCULATED) > 59 mL/min/ (58.99-99999); GLUCOSE 99 mg/dL (70-99); SODIUM 145 MEQ/L (136-147); UREA NITROGEN (BUN) 6 mg/dL (9-23)
[2017-09-07 11:38] VITALS: BP 92/54
[2017-09-07 15:36] VITALS: BP 107/64
[2017-09-08 04:07] VITALS: BP 103/60
[2017-09-08 05:30] LABS: HEMATOCRIT 32.9 % (38.0-50.0); HEMOGLOBIN 10.9 G/DL (12.5-16.6); MCH 30.9 PG (29.0-34.0); MCHC 33.1 G/DL (30.0-36.0); MCV 93.2 FL (86-99); PLATELET COUNT 131 K/uL (156-360); RBC DIS.WIDTH-CV 15.4 % (11.8-14.6); RBC DIS.WIDTH-SD 52.7 % (39-53); RED BLOOD COUNT 3.53 M/uL (4.00-5.50); WHITE BLOOD COUNT 3.6 K/uL (4.1-10.2)
[2017-09-08 06:01] LABS: CHLORIDE 117 MEQ/L (99-109); CREATININE 0.7 MG/DL (0.6-1.3); GFR ESTIMATE (CALCULATED) > 59 mL/min/ (58.99-99999); GLUCOSE 94 mg/dL (70-99); SODIUM 145 MEQ/L (136-147); UREA NITROGEN (BUN) 6 mg/dL (9-23)
[2017-09-08 06:02] LABS: POTASSIUM 4.2 MEQ/L (3.7-5.4)
[2017-09-08 07:24] VITALS: BP 142/60
[2017-09-08 11:54] VITALS: BP 146/54
[2017-09-08 23:30] VITALS: BP 109/65
[2017-09-09 06:47] LABS: HEMATOCRIT 33.8 % (38.0-50.0); HEMOGLOBIN 11.1 G/DL (12.5-16.6); MCH 30.4 PG (29.0-34.0); MCHC 32.8 G/DL (30.0-36.0); MCV 92.6 FL (86-99); PLATELET COUNT 139 K/uL (156-360); RBC DIS.WIDTH-CV 15.4 % (11.8-14.6); RBC DIS.WIDTH-SD 52.8 % (39-53); RED BLOOD COUNT 3.65 M/uL (4.00-5.50); WHITE BLOOD COUNT 3.9 K/uL (4.1-10.2)
[2017-09-09 07:18] LABS: CHLORIDE 115 MEQ/L (99-109); CREATININE 0.9 MG/DL (0.6-1.3); GFR ESTIMATE (CALCULATED) > 59 mL/min/ (58.99-99999); GLUCOSE 101 mg/dL (70-99); SODIUM 145 MEQ/L (136-147); UREA NITROGEN (BUN) 6 mg/dL (9-23)
[2017-09-09 12:07] VITALS: BP 128/75
[2017-09-10 00:49] VITALS: BP 111/66
[2017-09-10 07:57] VITALS: BP 122/78
[2017-09-10 12:37] VITALS: BP 112/62
[2017-09-10] MEDS ORDERED: VANCOCIN 250 M250 MG PO (15:19)
== END 2017-09-10 17:13 | disposition home or self-care (01) | DRG 372 ==
LOC: EME → EDBD 07:24 → EME 07:24 → EDOF 09:51 → ENRESERV 09:56 → 5WEST 12:31
PROVIDERS: Emergency Medicine; Hospitalist; Internal Medicine; Nurse Practitioner Adult Health
DX: A04.71 Enterocolitis due to Clostridium difficile, recurrent (principal); G45.9 Transient cerebral ischemic attack, unspecified; R47.81 Slurred speech; E78.5 Hyperlipidemia, unspecified; E83.42 Hypomagnesemia; E87.6 Hypokalemia; I10 Essential (primary) hypertension; I25.10 Atherosclerotic heart disease of native coronary artery without angina pectoris; I48.0 Paroxysmal atrial fibrillation; Z86.74 Personal history of sudden cardiac arrest; I25.2 Old myocardial infarction; Z79.82 Long term (current) use of aspirin; Z85.51 Personal history of malignant neoplasm of bladder; Z95.5 Presence of coronary angioplasty implant and graft; Z87.891 Personal history of nicotine dependence
CPT/HCPCS: 70450; 70496; 70498; 70551; 71045; 80048; 80053; 80061; 81003; 82150; 83036; 83690; 83735; 84484; 85025; 85027; 85610; 85730; 86850; 86900; 86901; 87086; 87493; 93005; 93306; 99281; 99285; G0378; G0480; J1650; J3475; J7030

== ENCOUNTER → 2017-09-19 | Outpatient (CLI) | payer OTHER ==
[~2017-09-19] MED LIST changes: +AZELASTINE205.5 MCG/ BOTH NARES; +MULTI VITAMIN1 EACH PO; +OYST-CAL-500500 MG PO; +SERTRALINE HCL25 MG PO; +VANCOCIN 250 M250 MG PO
== END | disposition home or self-care (01) ==
LOC: AMB 08:15
DX: A04.71 Enterocolitis due to Clostridium difficile, recurrent (principal)
CPT/HCPCS: 71045; G0455

== ENCOUNTER 2017-12-05 06:15 | Day surgery (SDC) | payer OTHER ==
[~2017-12-05] VITALS: Ht 190.5 cm; Wt 93.0 kg
[~2017-12-05 06:15] MED LIST changes: +COREG12.5 M1 PO; +LANOXIN125 MCG PO; +LO-DOSE ASPIRIN81 M1 PO
[2017-12-05 07:30] VITALS: BP 115/62
[2017-12-05 16:05] VITALS: BP 170/87
[2017-12-05 17:03] VITALS: BP 146/77
[2017-12-05 17:33] VITALS: BP 129/59
== END 2017-12-05 17:35 | disposition home or self-care (01) ==
LOC: SDC 06:15
DX: N20.2 Calculus of kidney with calculus of ureter (principal); R00.1 Bradycardia, unspecified; I25.10 Atherosclerotic heart disease of native coronary artery without angina pectoris; I25.2 Old myocardial infarction; I48.91 Unspecified atrial fibrillation; Z79.82 Long term (current) use of aspirin; Z95.5 Presence of coronary angioplasty implant and graft; Z87.891 Personal history of nicotine dependence
CPT/HCPCS: 93005; C1726; C1769; C2625; J0330; J0690; J1170; J2405; J2710; J2765; J3010; J7643